=== PATIENT | female | born 1950 | race Caucasian/White ===

== ENCOUNTER → 2021-03-18 14:28 | Outpatient (BNVA) | payer OTHER, SELFPAY | PROVIDERS: Visit Provider Surgery | DX: N18.6 End stage renal disease (principal); Z45.2 Encounter for adjustment and management of vascular access device | CPT/HCPCS: 36589; 99203 ==

== ENCOUNTER 2023-02-20 18:55 | Outpatient (CLI) | payer MEDICARE, SELFPAY ==
[2023-02-21 10:35] LABS: HIV-1/2 Ag & Ab Screen Negative (Negative)
[2023-02-21 10:44] LABS: Hepatitis C Ab w Rflx HCV PCR Negative (Negative)
== END 2023-02-20 18:56 | disposition home or self-care (01) ==
LOC: LBO 19:01
PROVIDERS: Visit Provider Internal Medicine Nephrology
DX: Z11.9 Encounter for screening for infectious and parasitic diseases, unspecified (principal)
CPT/HCPCS: 36415; 86803; 87389

== ENCOUNTER 2023-02-20 19:38 | Outpatient (CLI) | payer MEDICARE, SELFPAY ==
--- NOTE | 2023-02-20 13:25 | DI.RAD_ITS ---
Exam(s) XR CHEST 2V PA LATERAL EXAM: XR CHEST 2V PA LATERAL CLINICAL HISTORY: SCREENING FOR INFECTIOUS DISEASE, Z11.9 TECHNIQUE: 2D digital imaging was performed. COMPARISON: No exams were available for comparison FINDINGS: Double-lumen catheter noted with the tip in the right atrium. HEART: Normal size. Aorta: Not dilated. PULMONARY VASCULATURE: Normal. LUNGS: Interstitial changes which appear chronic. No focal consolidation. PLEURAL SPACE: No pleural effusion or pneumothorax. BONE:Mild upper thoracic compression fracture. IMPRESSION: No acute abnormality. DATA REPOSITORY: RADIATION DOSE DELIVERED:
== END 2023-02-20 19:58 ==
LOC: DI 19:40
PROVIDERS: Visit Provider Internal Medicine Nephrology
DX: Z11.9 Encounter for screening for infectious and parasitic diseases, unspecified (principal)
CPT/HCPCS: 71046